=== PATIENT | male | born 1985 | race Two or more races ===

== ENCOUNTER → 2025-01-30 | Outpatient (CLI) | payer BC, SELFPAY ==
[2025-01-30 09:26] LABS: Basophils # (Auto) 0.1 Thou/mm3 (0.0-0.2); Basophils % (Auto) 1 % (0-2.5); Eosinophils # (Auto) 0.2 Thou/mm3 (0.0-0.5); Eosinophils % (Auto) 4 % (0-10); Hematocrit 44.9 % (41.0-53.0); Hemoglobin 14.7 g/dL (13.5-16.0); Immature Granulocytes Auto 0.01 Thou/mm3 (0.00-0.00); Lymphocytes # (Auto) 2.0 Thou/mm3 (1.0-4.8); Lymphocytes % (Auto) 32 % (10-50); Mean Corpuscular HGB Conc 32.7 g/dl (31.0-37.0); Mean Corpuscular Hemoglobin 28.3 pg (25.0-35.0); Mean Corpuscular Volume 87 fL (80-100); Monocytes # (Auto) 0.6 Thou/mm3 (0.0-0.8); Monocytes % (Auto) 10 % (0-12); Neutrophils # (Auto) 3.4 Thou/mm3 (1.8-7.7); Neutrophils % (Auto) 53 % (37-80); Nucleated Red Blood Cell # 0.00 Thou/mm3 (0.00-0.00); Nucleated Red Blood Cell % 0 /100 WBC (0); Platelet Count 233 Thou/mm3 (140-440); RDW Standard Deviation 40.7 fL (35.1-43.9); Red Blood Count 5.19 Miln/mm3 (4.50-5.90); White Blood Count 6.3 Thou/mm3 (3.8-10.6)
[2025-01-30 09:36] LABS: Alanine Aminotransferase 37 U/L (10-49); Albumin, Serum 4.7 gm/dL (3.5-5.0); Alkaline Phosphatase 72 U/L (46-116); Anion Gap 8 (7-16); Aspartate Amino Transferase 18 U/L (0-34); BUN/Creatinine Ratio 16 Ratio (12-20); Bilirubin,Direct 0.1 mg/dL (0.0-0.3); Bilirubin,Total 0.3 mg/dL (0.3-1.2); Blood Urea Nitrogen 18 mg/dL (9-23); Calcium 10.0 mg/dL (8.3-10.6); Carbon Dioxide 28.6 mMol/L (20.0-31.0); Cardiac Risk Estimate 4.3 RATIO (4.0-6.7); Chloride 107 mMol/L (98-107); Cholesterol 218 mg/dL (132-200); Creatinine (Component) 1.1 mg/dL (0.6-1.3); Glucose 105 mg/dL (74-106); HDL Cholesterol 51 mg/dL (40-60); LDL Cholesterol,Calculated 148 mg/dL (0-130); Osmolality,Calculated 288 (275-295); Potassium 4.5 mMol/L (3.4-5.1); Sodium 144 mMol/L (136-145); Total Protein 7.3 gm/dL (5.7-8.2); Triglycerides 94 mg/dL (30-150); eGFR > 60 See Note
== END | disposition home or self-care (01) ==
PROVIDERS: PCP Family Medicine; Referring Provider Family Medicine; Visit Provider Family Medicine
DX: E78.1 Pure hyperglyceridemia (principal)
CPT/HCPCS: 36415; 80048; 80061; 80076; 85025

== ENCOUNTER 2025-03-03 11:00 | Day surgery (SDC) | payer BC, SELFPAY ==
[2025-03-02 07:23] VITALS: BMI 31.5
[2025-03-02 07:57] LABS: Basophils # (Auto) 0.1 Thou/mm3 (0.0-0.2); Basophils % (Auto) 1 % (0-2.5); Eosinophils # (Auto) 0.4 Thou/mm3 (0.0-0.5); Eosinophils % (Auto) 7 % (0-10); Hematocrit 43.3 % (41.0-53.0); Hemoglobin 14.5 g/dL (13.5-16.0); Immature Granulocytes Auto 0.01 Thou/mm3 (0.00-0.00); Lymphocytes # (Auto) 1.8 Thou/mm3 (1.0-4.8); Lymphocytes % (Auto) 31 % (10-50); Mean Corpuscular HGB Conc 33.5 g/dl (31.0-37.0); Mean Corpuscular Hemoglobin 28.0 pg (25.0-35.0); Mean Corpuscular Volume 84 fL (80-100); Monocytes # (Auto) 0.5 Thou/mm3 (0.0-0.8); Monocytes % (Auto) 8 % (0-12); Neutrophils # (Auto) 3.0 Thou/mm3 (1.8-7.7); Neutrophils % (Auto) 52 % (37-80); Nucleated Red Blood Cell # 0.00 Thou/mm3 (0.00-0.00); Nucleated Red Blood Cell % 0 /100 WBC (0); Platelet Count 222 Thou/mm3 (140-440); RDW Standard Deviation 39.8 fL (35.1-43.9); Red Blood Count 5.17 Miln/mm3 (4.50-5.90); White Blood Count 5.7 Thou/mm3 (3.8-10.6)
[2025-03-02 08:04] LABS: Anion Gap 9 (7-16); BUN/Creatinine Ratio 17 Ratio (12-20); Blood Urea Nitrogen 15 mg/dL (9-23); Calcium 10.2 mg/dL (8.3-10.6); Carbon Dioxide 26.4 mMol/L (20.0-31.0); Chloride 107 mMol/L (98-107); Creatinine (Component) 0.9 mg/dL (0.6-1.3); Estimated Creatinine Clearance 122.0 mL/min (>60); Glucose 95 mg/dL (74-106); Osmolality,Calculated 283 (275-295); Potassium 3.9 mMol/L (3.4-5.1); Sodium 142 mMol/L (136-145); eGFR > 60 See Note
[2025-03-03 11:07] VITALS: BMI 30.4
[2025-03-03 11:32] VITALS: BP 124/72; PULSE 73; RESP 22; TEMP 36.6; O2SAT 100
[2025-03-03] MEDS: RINGERS LACTATED 1000 ML 1,000 ML 20 ML IV (11:36)
[2025-03-03 13:07] VITALS: BP 100/60; PULSE 62; RESP 12; TEMP 36.9; O2SAT 100
--- NOTE | 2025-03-03 13:07 | SUR.PHASEII ---
1307: Pt. AAOx4, vitals stable, breathing unlabored, no complaint of pain or nausea, dressing to left axillary CDI, no active bleed noted, pt. able to move bilateral hands, bilateral radial pulses strong and regular, report received from MD Cooney and Akila LIRA.
[2025-03-03 13:12] VITALS: BP 112/70; PULSE 65; RESP 15; TEMP 36.7; O2SAT 97
[2025-03-03 13:14] VITALS: BP 106/69; PULSE 71; RESP 20; O2SAT 96
--- NOTE | 2025-03-03 13:14 | SUR.PHASEII ---
1314:received report from SORAYA Meeks. pt alert and oriented. no s/s of resp. distress or discomfort. denies any pain or discomfort. dermabond to left axilla clean, dry and intact.
--- NOTE | 2025-03-03 13:14 | SUR.PHASEII ---
1314: Report given to Eileen LIRA to resume care. Pt. AAOx4, vitals stable, breathing unlabored, no complaint of pain or nausea, dressing to left axillary CDI.
--- NOTE | 2025-03-03 13:15 | PD.SUROPNT ---
Date of Procedure 03/03/25 Pre Op Diagnosis Left axillary mass Post Op Diagnosis Left axillary mass Procedure Excision of subcutaneous mass from left axilla Findings An approximately 3.5 cm hard mass in the subcutaneous soft tissue of left axilla Procedure Description Patient brought into the operating room in supine position. After administration of monitored anesthesia care, patient's left axilla was shaved and prepped and draped in standard surgical manner. After administration of local anesthesia an approximately 4 cm elliptical incision was made and dissection was deepened into soft tissue. The underlying subcutaneous soft tissue mass was excised circumferentially with electrocautery. The mass was approximately 3.5 cm in diameter, was hard in texture. The wound was washed and irrigated. Hemostasis achieved using electrocautery. Soft tissue reapproximated with interrupted sutures using 2-0 Vicryl and the incision was closed with 4-0 Monocryl in subcuticular fashion. Dermabond applied. Patient tolerated procedure well. He was breathing spontaneously and without difficulty and was transferred to postanesthesia care in stable condition. Instruments, needles and sponge counts were reported to be correct x 2. Anesthesia MAC and local Pathology / specimen Other (Left axilla mass) Estimated Blood Loss 5 Condition Stable Disposition PACU Surgeon Elvie Fontana MD Surgical Staff Operation Date: 03/03/25 13:45 Case Staff SECURITIES SETTLEMENT PROCESSOR: Ludwig Taylor
[2025-03-03 13:30] VITALS: BP 103/66; PULSE 70; RESP 20; O2SAT 98
--- NOTE | 2025-03-03 13:30 | SUR.PHASEII ---
1330: pt able to drink soda without any difficulty.
--- NOTE | 2025-03-03 14:00 | SUR.PHASEII ---
1400: pt discharge to home via wheelchair with . pt alert and oriented. no s/s resp. distress or discomfort. denies any pain, discomfort or nausea. dermabond x1 to left axilla clean,dry and intact. no bleeding or drainage noted.
--- NOTE | 2025-03-03 14:00 | SUR.PHASEII ---
1400: discharge instructions given to and pt, all questions were answered. all belongings brought given back to patient.
== END 2025-03-03 14:00 | disposition home or self-care (01) ==
PROVIDERS: PCP Family Medicine; Referring Provider Surgery; Visit Provider Surgery
PROC: (CPT 21552; principal; 2025-03-03 13:30)
DX: L72.3 Sebaceous cyst (principal)
CPT/HCPCS: 21552; 36415; 80048; 85025; A4217; A4649; J0131; J0736; J1885; J2250; J2704; J3010; J3490; J7120